=== PATIENT | female | born 1945 | race Caucasian/White ===

== ENCOUNTER 2017-03-15 18:12 | Emergency (ER) | payer OTHER ==
[~2017-03-15] VITALS: Ht 152.4 cm; Wt 54.4 kg
[2017-03-15 18:23] VITALS: BP 131/79
[2017-03-15] MEDS ORDERED: SERTRALINE HCL100 MG PO (18:46)
== END 2017-03-15 19:14 | disposition home or self-care (01) ==
LOC: ER 18:12
DX: S60.454A Superficial foreign body of right ring finger, initial encounter (principal); W45.8XXA Other foreign body or object entering through skin, initial encounter; Y93.89 Activity, other specified; Y92.89 Other specified places as the place of occurrence of the external cause; Y99.9 Unspecified external cause status